=== PATIENT | male | born 1995 | race Caucasian/White ===

== ENCOUNTER 2018-12-08 00:37 | Emergency (ER) | payer OTHER ==
--- NOTE | 2018-12-08 01:15 | ERPHSYRPT ---
- History of Present Illness Source: patient, family Exam Limitations: no limitations Patient Subjective Stated Complaint: pt states he had a biopsy done on 11/24, had the sutures taken out on thursday. states the incision opened up tonight Triage Nursing Assessment: pt alert and oriented, asnwers questions approp. pt ambulatoryw ith steady gait noted. respirations nonlabored with lungs cta. incision noted to lt top head- no bleeding noted at this time. Physician History: Pt is a 23 y/o male with a recent h/o biopsy of scalp. Pt had his stitches removed, and today noticed some clear oozing from the incision. He presented to the ER to make sure it is not infected. Timing/Duration: today Quality: other (oozing from incision) Severity: mild Location: scalp Possible Causes: no cause identified Allergies/Adverse Reactions: No Known Drug Allergies Allergy (Verified 12/08/18 00:56) Home Medications: No Reportable Medications [No Reported Medications] 12/08/18 [History] Hx Tetanus, Diphtheria Vaccination/Date Given: No Hx Influenza Vaccination/Date Given: No Hx Pneumococcal Vaccination/Date Given: No Immunizations Up to Date: No - Review of Systems Skin: Other (oozing from skin incision from previous biopsy) - Past Medical History Pertinent Past Medical History: Yes Other Medical History: hodgkins lymphoma 2018, chemo - Past Surgical History Past Surgical History: Yes Gastrointestinal: Appendectomy Other Surgical History: port placement, pericardial window - Social History Smoking Status: Former smoker Exposure to second hand smoke: Yes Drug Use: none Patient Lives Alone: No - Nursing Vital Signs Nursing Vital Signs: Initial Vital Signs Temperature 98.0 F 12/08/18 00:46 Pulse Rate 81 12/08/18 00:46 Respiratory Rate 16 12/08/18 00:46 Blood Pressure 117/72 12/08/18 00:46 O2 Sat by Pulse Oximetry 96 12/08/18 00:46 Pain Scale Pain Intensity 0 - Physical Exam General Appearance: no apparent distress, alert Skin Exam: other (Incision is healing. scar is closed. No oozing is seen now.) SpO2: 96 - Course Nursing assessment & vital signs reviewed: Yes - Progress Progress: unchanged Progress Note: 12/08/18 01:11 Pt's incision was examined. It is closed, and healing. Pt was advised to avoid scratching at it. Soap and water can be used for cleaning. Pt should avoid hats, that can cause bacteria to get to the area. Pt should f/u with physician that performed the biopsy as a f/u. Counseled pt/family regarding: need for follow-up - Departure Time of Disposition: 01:13 Departure Disposition: Home Clinical Impression: Scalp bruising Condition: Stable Critical Care Time: No Referrals: JEZ MORENO [Primary Care Provider] - Additional Instructions: F/U with the physician that performed the biopsy for evaluation
[2018-12-08 01:39] VITALS: BP 119/67; PULSE 84; O2SAT 98
== END 2018-12-08 01:39 | disposition home or self-care (01) ==
LOC: ED 00:37
DX: L76.32 Postprocedural hematoma of skin and subcutaneous tissue following other procedure (principal)
CPT/HCPCS: 99283

== ENCOUNTER 2021-12-15 23:49 | Observation (INO) | payer OTHER ==
[2021-12-16] MEDS ORDERED: GlucaGen 1 MG IM ONE (00:07)
--- NOTE | 2021-12-16 00:12 | ERPHSYRPT ---
- History of Present Illness Time Seen by Provider: 12/16/21 00:00 Source: patient Exam Limitations: no limitations Patient Subjective Stated Complaint: eating porkchop tonight and didnt get a piece chewed up well and its stuck between lower neck and upper chest area. Triage Nursing Assessment: pt was eating a boneless porkchop for dinner tonight around 2129, apparently didn't get a piece chewed up well and it is stuck between lower neck and upper chest area. Pt has tried to cough really hard, drink a can of coke and water, and a Tablespoon of butter to get it down but is unable to. Pt can feel it. Lungs clear, heart tones reg, abd soft with active bs x4 quad, nontender. Pt states, "I can't even swallow water". Physician History: This is a 26-year-old white male who presents with a food bolus stuck in his esophagus. Patient was eating pork chop approximately 9:30 PM. He is unable to swallow since that time. He is breathing well. He does not have significant pain in the area. He has a history of lymphoma and there was perihilar mass removed and a pericardial window placed in the distant past. He has had no tracheal or esophageal surgeries. He had chemotherapy for this lymphoma but no radiation treatment. Timing/Duration: today Severity: moderate Associated Symptoms: denies symptoms Allergies/Adverse Reactions: No Known Drug Allergies Allergy (Verified 12/16/21 00:03) Home Medications: No Reportable Medications [No Reported Medications] 12/08/18 [History] Hx Tetanus, Diphtheria Vaccination/Date Given: Yes Hx Influenza Vaccination/Date Given: No Hx Pneumococcal Vaccination/Date Given: No Immunizations Up to Date: Yes Travel Risk - International Travel Have you traveled outside of the country in past 3 weeks: No - Coronavirus Screening Are you exhibiting any of the following symptoms?: No Close contact with a COVID-19 positive Pt in past 14-21 Days: No - Vaccine Status Have you recieved a Covid-19 vaccination: No - Review of Systems Constitutional: No Symptoms Eyes: No Symptoms Respiratory: No Symptoms Cardiac: No Symptoms Abdominal/Gastrointestinal: No Symptoms Genitourinary Symptoms: No Symptoms Musculoskeletal: No Symptoms Skin: No Symptoms Neurological: No Symptoms Psychological: No Symptoms Endocrine: No Symptoms Hematologic/Lymphatic: No Symptoms Immunological/Allergic: No Symptoms All Other Systems: Reviewed and Negative - Past Medical History Pertinent Past Medical History: Yes Other Medical History: hodgkins lymphoma 2018, chemo - Past Surgical History Past Surgical History: Yes Gastrointestinal: Appendectomy Other Surgical History: port placement, pericardial window - Social History Smoking Status: Never smoker Exposure to second hand smoke: No Drug Use: none Patient Lives Alone: No - Nursing Vital Signs Nursing Vital Signs: Initial Vital Signs Temperature 97.6 F 12/15/21 23:49 Pulse Rate 91 H 12/15/21 23:49 Respiratory Rate 18 12/15/21 23:49 Blood Pressure 141/83 12/15/21 23:49 O2 Sat by Pulse Oximetry 100 12/15/21 23:49 Pain Scale Pain Intensity 3 - Physical Exam General Appearance: mild distress, alert, anxiety Eye Exam: PERRL/EOMI, eyes nml inspection Ears, Nose, Throat Exam: normal ENT inspection, moist mucous membranes Neck Exam: normal inspection, non-tender, supple, full range of motion Respiratory Exam: normal breath sounds, lungs clear, airway intact, No chest tenderness, No respiratory distress Cardiovascular Exam: regular rate/rhythm, normal heart sounds, normal peripheral pulses Gastrointestinal/Abdomen Exam: soft, normal bowel sounds, No tenderness Rectal Exam: not done Back Exam: normal inspection, normal range of motion, No CVA tenderness, No vertebral tenderness Extremity Exam: normal inspection, normal range of motion, pelvis stable Neurologic Exam: alert, oriented x 3, cooperative, heating 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 II-XII nml as tested, normal mood/affect, nml cerebellar function, nml station & gait, sensation nml Skin Exam: normal color, warm, dry Lymphatic Exam: No adenopathy SpO2 Interpretation: normal SpO2: 100 O2 Delivery: Room Air - Course Nursing assessment & vital signs reviewed: Yes Ordered Tests: Active Orders 24 hr Category Date Time Status BMP Stat Lab 12/16/21 01:49 Completed CBC W DIFF Stat Lab 12/16/21 01:49 Completed Transfer Order Routine Transfer 12/16/21 Ordered Medication Summary Discontinued Medications Generic Name Dose Route Start Last Admin Trade Name Freq PRN Reason Stop Dose Admin Glucagon 1 mg 12/16/21 00:07 12/16/21 00:20 Glucagon 1 Mg/Vial Vial IM 12/16/21 00:08 Not Given STAT ONE Glucagon Confirm 12/16/21 00:14 Glucagon 1 Mg/Vial Vial Administered 12/16/21 00:15 Dose 1 mg .ROUTE .STK-MED ONE Glucagon 0.5 mg 12/16/21 00:18 12/16/21 00:19 Glucagon 1 Mg/Vial Vial IV 12/16/21 00:19 0.5 mg STAT ONE Administration Lab/Rad Data: Laboratory Result Diagrams 12/16/21 01:49 12/16/21 01:49 Laboratory Results 12/16/21 12/16/21 Range/Units 01:49 01:49 WBC 12.1 H (4.0-10.5) K/mm3 RBC 5.75 H (4.1-5.6) M/mm3 Hgb 16.7 (12.5-18.0) gm/dl Hct 48.1 (42-50) % MCV 83.7 (78-100) fl MCH 29.0 (26-32) pg MCHC 34.7 (32-36) g/dl RDW 13.4 (11.5-14.0) % Plt Count 216 (150-450) K/mm3 MPV 10.6 (7.5-11.0) fl Gran % 64.9 (36.0-66.0) % Eos # (Auto) 0.43 (0-0.5) Absolute Lymphs (auto) 2.80 (1.0-4.6) Absolute Monos (auto) 0.93 (0.0-1.3) Lymphocytes % 23.2 L (24.0-44.0) % Monocytes % 7.7 (0.0-12.0) % Eosinophils % 3.6 (0.00-5.0) % Basophils % 0.6 (0.0-0.4) % Absolute Granulocytes 7.86 H (1.4-6.9) Basophils # 0.07 (0-0.4) Sodium 140 (137-145) mmol/L Potassium 3.7 (3.5-5.1) mmol/L Chloride 100 (98-107) mmol/L Carbon Dioxide 30 (22-30) mmol/L Anion Gap 12.7 (5-15) MEQ/L BUN 12 (9-20) mg/dL Creatinine 1.30 H (0.66-1.25) mg/dL Estimated GFR > 60.0 ML/MIN Glucose 76 (74-106) mg/dL Calcium 9.1 (8.4-10.2) mg/dL - Progress Progress: unchanged Progress Note: 12/16/21 01:40 Medical decision making: I spoke with general surgeon Mahad Chin on the phone. This patient will require an EGD. Dr. Mahad Chin stated to have the patient stay in the hospital for Dr. Cain Chin to perform an EGD at 7:30 in the morning. We are calling the housecalls nurse to get that arranged. We will place the patient on some intravenous fluids. I feel the patient can stay in the emergency department until the time of his surgery. We will do a preoperative Covid test. 12/16/21 01:42 12/16/21 02:08 There is a change in plans. The patient will be placed in observation until [facility] is able to perform an EGD. I spoke with Dr. Pool who is a hospitalist today. The patient be admitted to Dr. Pool and undergo the EGD sometime late morning today. Discussed with : Melchor Contreras Counseled pt/family regarding: diagnosis - Departure Departure Disposition: Observation Clinical Impression: Impacted esophageal foreign body Condition: Stable Critical Care Time: No Referrals: JEZ MORENO [Primary Care Provider] - Follow up/PCP as directed
[2021-12-16] MEDS ORDERED: GlucaGen 1 MG ONE (00:14)
[2021-12-16] MEDS ORDERED: GlucaGen 1 MG IV ONE (00:18)
[2021-12-16 01:53] LABS: Absolute Neutrophil Ct (ANC) 7.86 (1.4-6.9); Basophil (Absolute #) 0.07 (0-0.4); Eosinophil % 3.6 % (0.00-5.0); Eosinophil (Absolute #) 0.43 (0-0.5); Hematocrit 48.1 % (42-50); Hemoglobin 16.7 gm/dl (12.5-18.0); Lymphocytes % 23.2 % (24.0-44.0); Mean Cell Volume 83.7 fl (78-100); Mean Corpuscular Hgb Concent. 34.7 g/dl (32-36); Mean Platelet Volume 10.6 fl (7.5-11.0); Monocyte (Absolute #) 0.93 (0.0-1.3); Monocytes % 7.7 % (0.0-12.0); Neutrophil % 64.9 % (36.0-66.0); Platelet Count 216 K/mm3 (150-450); Red Blood Count 5.75 M/mm3 (4.1-5.6); Red Cell Distribution Width 13.4 % (11.5-14.0); White Blood Count 12.1 K/mm3 (4.0-10.5)
[2021-12-16 02:05] LABS: ANION GAP 12.7 MEQ/L (5-15); BLOOD UREA NITROGEN 12 mg/dL (9-20); CHLORIDE 100 mmol/L (98-107); Calcium 9.1 mg/dL (8.4-10.2); Carbon Dioxide 30 mmol/L (22-30); EST GLOMERULAR FILTRATION RATE > 60.0 ML/MIN; Glucose 76 mg/dL (74-106); Potassium 3.7 mmol/L (3.5-5.1); SODIUM 140 mmol/L (137-145)
[2021-12-16 02:34] LABS: INFLUENZA A NEGATIVE (NEGATIVE); INFLUENZA B NEGATIVE (NEGATIVE); RESPIRATORY SYNCTIAL VIRUS NEGATIVE (Negative); SARS-CoV-2 Xpert Express NEGATIVE (NEGATIVE)
[2021-12-16] MEDS ORDERED: FEVERALL 650 MG PR PRN (03:12)
[2021-12-16] MEDS ORDERED: Zofran 4 MG/2 ML VIAL IV PRN (03:12)
[2021-12-16] MEDS ORDERED: Sodium Chloride 0.9% 1000 ML 1,000 ML IV SCH (03:12)
[2021-12-16 07:50] VITALS: O2SAT 97
[2021-12-16 11:53] VITALS: BP 120/60; PULSE 68
[2021-12-16] MEDS ORDERED: Versed 2 MG/2 ML Injection ONE (12:25)
[2021-12-16] MEDS ORDERED: Lactated Ringers 1,000 ML IV ONE (12:55)
[2021-12-16] MEDS ORDERED: DIPRIVAN 200 MG/20 ML IV ONE ×2 (13:07→13:10)
[2021-12-16] MEDS ORDERED: Ketamine HCl 50 MG/ML ONE (13:08)
--- NOTE | 2021-12-16 15:21 | CONS ---
CONSULT DATE: 12/16/2021 This patient was seen for Dr. Cain Chin who was consulted apparently during the night. He asked that I see the patient today when I was here doing outpatient procedures. HISTORY: He was apparently was eating a pork chop and felt like it did not get all the way down and stuck in the upper to lower chest area and esophagus. It feels like it is still present there. He denies any severe abdominal pain. PAST MEDICAL/SURGICAL HISTORY: Non-Hodgkin's lymphoma. He had pericardial window for some fluid around his heart. He had an appendectomy. He denied any prior endoscopy. He denied any prior swallowing problem. HOME MEDICATIONS: None on a regular basis. ALLERGIES: AMEND (HE STATES SOME SORT OF STEROID). FAMILY HISTORY: Negative in regards to this specific problem. SOCIAL HISTORY: He denied smoking. REVIEW OF SYSTEMS: Fourteen systems reviewed pertinent for as noted above, pertinent for the dysphagia. Question of retained food bolus. No shortness of breath. PHYSICAL EXAMINATION: GENERAL: No acute distress. HEENT: Sclera nonicteric. NECK: No JVD. CHEST: Equal excursion, nonlabored breathing. CVS: Regular rhythm and pulse. ABDOMEN: Soft, nondistended. EXTREMITIES: No edema. NEURO: Alert, moving extremities grossly symmetrically. PSYCH: Appropriate mood and affect. IMPRESSION: Dysphagia, question of retained food bolus. I feel the patient is a candidate for upper endoscopy, possible dislodgement of food bolus, possible removal of food bolus, possible biopsy. General risk explained. He was explained that whether he had retained food bolus or if he had already done significant damage to his esophagus, he could have perforation. He could have ischemic changes that could result in delayed perforation in a day or two or three from now. General risk of bleeding or infection, risk of aspiration or pneumonia, risk of cardiopulmonary event, possible need for biopsy depending on operative findings as well as possibility of anesthesia or sedation. General risk of aches and pains, possibility if we get this food bolus dislodged or removed, he may need follow up endoscopy if he has some persistent dysphagia down the road or may need some other upper GI or other work up. He understands all the above and the real risk of perforation and/or the fact that what he had retained in there could have some ischemic changes resulting in delayed perforation. He understands all the above and will proceed EGD, possible biopsy, possible dislodgement or removal of question of retained food bolus pending operative findings. Again, this patient was seen for Dr. Cain Chin who was consulted during the night and he asked that I see the patient while I was doing cases here.
--- NOTE | 2021-12-16 17:53 | PCM.SSS ---
History of Present Illness - Chief Complaint Chief Complaint: Impacted esophageal foreign body History of Present Illness: is a 26 year old male with a Hx Hodgkins Lymphoma in remission dg 2018. treated with Chemo and followed by Dr Haque . 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 He states he has occasional times when food sticks but it will go down with drinking. Patient states he sees Dr BRITTANY Balderas as his primary care doctor.He has appt with Dr Haque this week,follows q 3-4 months. Patient was treated by General Surgery /EGD and food was removed . Patient is in his bed eating a peice of pizza and drinking a pop. - Review of Systems Constitutional: No Symptoms Ears, Nose, & Throat: Painful Swallowing (mild post EGD retrival of meat bolus) Respiratory: No Symptoms Cardiac: No Symptoms Abdominal/Gastrointestinal: No Symptoms Genitourinary Symptoms: No Symptoms Musculoskeletal: No Symptoms Skin: No Symptoms Medications & Allergies Home Medications: Home Medication List Sucralfate 1000 mg/10 ml [Carafate SUSPENSION 1000 MG/10 ML] 1 gm PO TID #200 ml 12/16/21 [Rx] Allergies/Adverse Reactions: Allergies Allergy/AdvReac Type Severity Reaction Status Date / Time No Known Drug Allergies Allergy Verified 12/16/21 00:03 - Past Medical History Past Medical History: Yes Neurological History: No Pertinent History ENT History: No Pertinent History Cardiac History: No Pertinent History Respiratory History: No Pertinent History Endocrine Medical History: No Pertinent History Musculoskelatal History: No Pertinent History GI Medical History: No Pertinent History History: No Pertinent History Pyscho-Social History: No Pertinent History Male Reproductive Disorders: No Pertinent History Comment: hodgkins lymphoma 2018, chemo - Past Surgical History Past Surgical History: Yes Neuro Surgical History: No Pertinent History Cardiac History: No Pertinent History, Other (pericardial window/hodgkins) Respiratory Surgery: No Pertinent History GI Surgical History: Appendectomy Genitourinary Surgical Hx: No Pertinent History Musculskeletal Surgical Hx: No Pertinent History Male Surgical History: No Pertinent History Other Surgical History: port placement, pericardial window - Social History Smoking Status: Former smoker Exposure to second hand smoke: No Alcohol: None Drug Use: none - Physical Exam Vital Signs: Vital Signs - 24 hr Temp Pulse Resp BP Pulse Ox 12/16/21 11:51 97.5 F 68 18 120/60 97 12/16/21 07:49 97.2 F 70 18 116/62 97 12/16/21 03:52 97.3 F 72 16 126/71 96 12/16/21 03:23 97.3 F 72 16 126/71 96 12/16/21 03:00 68 16 116/73 96 12/16/21 02:12 69 16 132/89 96 12/16/21 02:11 100 12/16/21 01:00 91 H 18 105/94 99 12/15/21 23:49 97.6 F 91 H 18 141/83 100 General Appearance: no apparent distress Neurologic Exam: alert, oriented x 3, cooperative, normal mood/affect Eye Exam: eyes nml inspection Ears, Nose, Throat Exam: normal ENT inspection Neck Exam: normal inspection Respiratory Exam: normal breath sounds Cardiovascular Exam: regular rate/rhythm Gastrointestinal/Abdomen Exam: soft (nontender) Results - Labs Lab/Micro Results: Lab Results-Last 24 Hours 12/16/21 12/16/21 12/16/21 Range/Units 01:49 01:49 01:51 WBC 12.1 H (4.0-10.5) K/mm3 RBC 5.75 H (4.1-5.6) M/mm3 Hgb 16.7 (12.5-18.0) gm/dl Hct 48.1 (42-50) % MCV 83.7 (78-100) fl MCH 29.0 (26-32) pg MCHC 34.7 (32-36) g/dl RDW 13.4 (11.5-14.0) % Plt Count 216 (150-450) K/mm3 MPV 10.6 (7.5-11.0) fl Gran % 64.9 (36.0-66.0) % Eos # (Auto) 0.43 (0-0.5) Absolute Lymphs (auto) 2.80 (1.0-4.6) Absolute Monos (auto) 0.93 (0.0-1.3) Lymphocytes % 23.2 L (24.0-44.0) % Monocytes % 7.7 (0.0-12.0) % Eosinophils % 3.6 (0.00-5.0) % Basophils % 0.6 (0.0-0.4) % Absolute Granulocytes 7.86 H (1.4-6.9) Basophils # 0.07 (0-0.4) Sodium 140 (137-145) mmol/L Potassium 3.7 (3.5-5.1) mmol/L Chloride 100 (98-107) mmol/L Carbon Dioxide 30 (22-30) mmol/L Anion Gap 12.7 (5-15) MEQ/L BUN 12 (9-20) mg/dL Creatinine 1.30 H (0.66-1.25) mg/dL Estimated GFR > 60.0 ML/MIN Glucose 76 (74-106) mg/dL Calcium 9.1 (8.4-10.2) mg/dL Influenza Type A Ag NEGATIVE (NEGATIVE) Influenza Type B Ag NEGATIVE (NEGATIVE) RSV (PCR) NEGATIVE (Negative) SARS-CoV-2 (PCR) NEGATIVE (NEGATIVE) Assessment/Plan (1) Impacted esophageal foreign body Current Visit: Yes Status: Resolved Assessment & Plan: post EGD doing well Code(s): T18.108A - UNSP FOREIGN BODY IN ESOPHAGUS CAUSING OTH INJURY, INIT (2) Hx of Hodgkins lymphoma Current Visit: Yes Status: Resolved Assessment & Plan: followed by Dr Hutchinson,has appt this week Code(s): Z85.71 - PERSONAL HISTORY OF HODGKIN LYMPHOMA Hospital Summary - Hospital Course Hospital Course: see HPI. Will follow up with PCP Clint Balderas and oncology Dr Haque. - Vitals & Intake/Output Vital Signs: Vital Signs Temperature 97.5 F 12/16/21 11:51 Pulse Rate 68 12/16/21 11:51 Respiratory Rate 18 12/16/21 11:51 Blood Pressure 120/60 12/16/21 11:51 O2 Sat by Pulse Oximetry 97 12/16/21 11:51 Intake & Output: Intake & Output 12/14/21 12/15/21 12/16/21 12/17/21 11:59 11:59 11:59 11:59 Weight 106.3 kg - Lab Result Diagrams: 12/16/21 01:49 12/16/21 01:49 Lab Results-Last 24 Hrs: Lab Results-Last 24 Hours 12/16/21 12/16/21 12/16/21 Range/Units 01:49 01:49 01:51 WBC 12.1 H (4.0-10.5) K/mm3 RBC 5.75 H (4.1-5.6) M/mm3 Hgb 16.7 (12.5-18.0) gm/dl Hct 48.1 (42-50) % MCV 83.7 (78-100) fl MCH 29.0 (26-32) pg MCHC 34.7 (32-36) g/dl RDW 13.4 (11.5-14.0) % Plt Count 216 (150-450) K/mm3 MPV 10.6 (7.5-11.0) fl Gran % 64.9 (36.0-66.0) % Eos # (Auto) 0.43 (0-0.5) Absolute Lymphs (auto) 2.80 (1.0-4.6) Absolute Monos (auto) 0.93 (0.0-1.3) Lymphocytes % 23.2 L (24.0-44.0) % Monocytes % 7.7 (0.0-12.0) % Eosinophils % 3.6 (0.00-5.0) % Basophils % 0.6 (0.0-0.4) % Absolute Granulocytes 7.86 H (1.4-6.9) Basophils # 0.07 (0-0.4) Sodium 140 (137-145) mmol/L Potassium 3.7 (3.5-5.1) mmol/L Chloride 100 (98-107) mmol/L Carbon Dioxide 30 (22-30) mmol/L Anion Gap 12.7 (5-15) MEQ/L BUN 12 (9-20) mg/dL Creatinine 1.30 H (0.66-1.25) mg/dL Estimated GFR > 60.0 ML/MIN Glucose 76 (74-106) mg/dL Calcium 9.1 (8.4-10.2) mg/dL Influenza Type A Ag NEGATIVE (NEGATIVE) Influenza Type B Ag NEGATIVE (NEGATIVE) RSV (PCR) NEGATIVE (Negative) SARS-CoV-2 (PCR) NEGATIVE (NEGATIVE) - Discharge Disposition: Home, Self-Care Condition: Stable Prescriptions: New Sucralfate 1000 mg/10 ml [Carafate SUSPENSION 1000 MG/10 ML] 1 gm PO TID #200 ml Instructions: Food Obstruction Additional Instructions: NO NSAIDS OR ASPIRIN FOR 7 DAYS Follow up with: OLENA HAQUE [COURTESY STAFF] - (Patient will call to follow up) DANIELE BALDERAS [ACTIVE STAFF] - (will need to follow up )
--- NOTE | 2021-12-17 08:17 | OP ---
SURGERY DATE/TIME: 12/16/2021 1314 PREOPERATIVE DIAGNOSIS: Dysphagia, question of retained food bolus. POSTOPERATIVE DIAGNOSES: 1) Mild gastritis. 2) Mild distal esophagitis. 3) Food bolus in the stomach. PROCEDURES: 1) EGD with cold biopsy of the antrum for Helicobacter pylori. 2) Cold biopsy of distal esophagus to evaluate for esophagitis. 3) Cold biopsy of mid esophagus to evaluate for eosinophilic esophagitis. SURGEON: Dr. Srikanth Medina. ANESTHESIA: MAC. ESTIMATED BLOOD LOSS: Minimal. INDICATIONS: Dr. Cain Chin had been called during the night about retained food bolus. He asked that I see the patient and proceed with endoscopy for dysphagia, question of persistent retained food bolus. Risks and benefits explained in detail and not limited to and consent obtained. DESCRIPTION OF PROCEDURE AND FINDINGS: The patient is taken to the endoscopy room. MAC anesthesia introduced. After official time out and no disagreement with planned procedure, a bite block positioned. Video gastroscope easily passed down the esophagus through the gastroesophageal junction. It should be noted that there is some inflammation distal esophagus. There is a food bolus that had dropped down into the stomach. Whether from relaxation of the MAC anesthesia or not is unclear. There was no obstruction, no stricture to warrant any dilatation at this point. The scope is passed down into the duodenum. The third, second and first portion of the duodenum grossly unremarkable. Back in the stomach he had some mild gastritis. Cold biopsy taken to evaluate for Helicobacter pylori. Again, the large piece of meat was in the proximal stomach sitting there. On retroflex there was no evidence of any large hiatal hernia. The scope pulled back. Gastroesophageal junction about 39 cm. There was a little bit of inflammation in distal portion of the esophagus without any deep erosions. Some cold biopsies taken to evaluate for esophagitis. Good hemostasis noted. Again, there is no obstruction currently. The scope is pulled back up. There is a little bit of wrinkling in the esophagus a little bit further up. It was elected to go ahead and evaluate for eosinophilic esophagitis. Otherwise no signs of any large polyps, masses or any obstructing lesions. Good hemostasis noted. Scope is withdrawn. There was no family here to discuss the findings with. I will see him back in the office in a couple of weeks.
== END 2021-12-16 18:17 | disposition home or self-care (01) ==
LOC: ED 23:49 → MED SURG 12-16 03:09
PROVIDERS: ADMIT Family Medicine; ATTEND Family Medicine
DX: T18.108A Unspecified foreign body in esophagus causing other injury, initial encounter (principal); K29.70 Gastritis, unspecified, without bleeding; K20.90 Esophagitis, unspecified without bleeding; Z85.71 Personal history of Hodgkin lymphoma; Z20.828 Contact with and (suspected) exposure to other viral communicable diseases
CPT/HCPCS: 0241U; 36415; 43239; 80048; 85025; 96374; 99285; G0378; J1610; J2250; J2704

== ENCOUNTER 2022-08-11 21:33 | Observation (INO) | payer OTHER ==
[2022-08-11] MEDS ORDERED: GlucaGen 1 MG IV ONE (21:55)
[2022-08-11] MEDS ORDERED: GlucaGen 1 MG ONE (21:56)
[2022-08-11] MEDS ORDERED: Zofran 4 MG/2 ML VIAL IV PRN (22:42)
[2022-08-11] MEDS ORDERED: Hydromorphone 1 mg/ml Injection IV PRN (22:46)
--- NOTE | 2022-08-11 22:52 | ERPHSYRPT ---
- History of Present Illness Historian: patient Exam Limitations: no limitations Patient Subjective Stated Complaint: pt states he was eating beef jerky and states it is stuck in his throat. Triage Nursing Assessment: pt is alert and oriented, pt has no pain. states that he cannot swallow his saliva. Physician History: Beef jerky caught in the esophagus. Pt states that this is the 3rd episode of food bolus stuck in the esophagus this year. First episode was resolved w EGD, and he was able to clear the second time at home. Pt is unable to swallow solids/liquids. He denies reflux symptoms but states that problem might be related to Hodgkins Dz which he is in remission. Timing/Duration: other (17:30 today) Activities at Onset: other (Eating beef jerky) Quality: fullness Abdominal Pain Onset Location: other (Throat) Pain Radiation: no radiation Severity of Pain-Max: mild Severity of Pain-Current: mild Modifying Factors: Improves With: nothing, eating Associated Symptoms: denies symptoms Previous symptoms: same symptoms as today Allergies/Adverse Reactions: fosaprepitant [From Emend (fosaprepitant)] Allergy (Verified 08/11/22 21:44) Hx Tetanus, Diphtheria Vaccination/Date Given: Yes Hx Influenza Vaccination/Date Given: No Hx Pneumococcal Vaccination/Date Given: No Travel Risk - International Travel Have you traveled outside of the country in past 3 weeks: No - Coronavirus Screening Are you exhibiting any of the following symptoms?: No Close contact with a COVID-19 positive Pt in past 14-21 Days: No - Vaccine Status Have you recieved a Covid-19 vaccination: No - Review of Systems Constitutional: No Symptoms Eyes: No Symptoms Ears, Nose, & Throat: No Symptoms, Throat Pain, Painful Swallowing Respiratory: No Symptoms Cardiac: No Symptoms Abdominal/Gastrointestinal: No Symptoms Genitourinary Symptoms: No Symptoms Musculoskeletal: No Symptoms Skin: No Symptoms Neurological: No Symptoms Psychological: No Symptoms Endocrine: No Symptoms Hematologic/Lymphatic: No Symptoms Immunological/Allergic: No Symptoms - Past Medical History Pertinent Past Medical History: Yes Neurological History: No Pertinent History ENT History: No Pertinent History Cardiac History: No Pertinent History Respiratory History: No Pertinent History Endocrine Medical History: No Pertinent History Musculoskeletal History: No Pertinent History GI Medical History: No Pertinent History History: No Pertinent History Psycho-Social History: No Pertinent History Male Reproductive Disorders: No Pertinent History Other Medical History: hodgkins lymphoma 2018, chemo - Past Surgical History Past Surgical History: Yes Neuro Surgical History: No Pertinent History Cardiac: No Pertinent History, Other Respiratory: No Pertinent History Gastrointestinal: Appendectomy Genitourinary: No Pertinent History Musculoskeletal: No Pertinent History Male Surgical History: No Pertinent History Other Surgical History: port placement, pericardial window - Social History Smoking Status: Former smoker Exposure to second hand smoke: No Drug Use: none Patient Lives Alone: No - Nursing Vital Signs Nursing Vital Signs: Initial Vital Signs Temperature 98.1 F 08/11/22 21:37 Pulse Rate 78 08/11/22 21:37 Respiratory Rate 18 08/11/22 21:37 Blood Pressure 126/91 08/11/22 21:37 O2 Sat by Pulse Oximetry 98 08/11/22 21:37 Pain Scale Pain Intensity 0 WNL - Physical Exam General Appearance: no apparent distress Eye Exam: PERRL/EOMI, eyes nml inspection Ears, Nose, Throat Exam: normal ENT inspection, TMs normal, pharynx normal, moist mucous membranes Neck Exam: normal inspection, non-tender, supple, full range of motion, No meningismus, No mass, No Brudzinski, No Kernig's Respiratory Exam: normal breath sounds, lungs clear, airway intact, No respiratory distress Cardiovascular Exam: regular rate/rhythm, normal heart sounds, normal peripheral pulses, capillary refill <2 sec, No murmur Gastrointestinal/Abdomen Exam: soft, normal bowel sounds, No tenderness Back Exam: normal inspection, normal range of motion, No CVA tenderness, No vertebral tenderness Extremity Exam: normal inspection, normal range of motion, pelvis stable Neurologic Exam: alert, oriented x 3, cooperative, biostatistician II-XII nml as tested, normal mood/affect, nml cerebellar function, nml station & gait, sensation nml Skin Exam: normal color, warm, dry, No rash Lymphatic Exam: No adenopathy SpO2 Interpretation: normal SpO2: 98 O2 Delivery: Room Air - Course Nursing assessment & vital signs reviewed: Yes Ordered Tests: Active Orders 24 hr Category Date Time Status Bedrest with BRP/BSC ROUTINE Activity 08/11/22 22:44 Active Code Status Order ROUTINE Care 08/11/22 22:43 Active IV Care Q6H Care 08/11/22 22:43 Active IV Insertion STAT Care 08/11/22 21:[address] in Observation ROUTINE Care 08/11/22 22:43 Active Vital Signs Q4H Care 08/11/22 22:42 Active NPO Diet 08/11/22 22:44 Active CBC W DIFF AM.LAB Lab 08/12/22 04:00 Ordered CMP AM.LAB Lab 08/12/22 04:00 Ordered Transfer Order Routine Transfer 08/11/22 Ordered Medication Summary Generic Name Dose Route Start Last Admin Trade Name Moriah PRN Reason Stop Dose Admin Hydromorphone HCl 1 mg 08/11/22 22:46 08/11/22 22:55 Hydromorphone 1 Mg/1ml Inj 1 Mg/Ml Syringe IV 08/16/22 22:45 1 mg Q4H PRN PRN Administration PAIN Lactated Ringer's 1,000 mls @ 100 mls/hr 08/11/22 23:00 08/11/22 22:55 Lactated Ringers IV 09/10/22 22:59 100 mls/hr .Q10H GIN Administration Ondansetron HCl 4 mg 08/11/22 22:42 08/11/22 22:55 Ondansetron Hcl 4 Mg/2 Ml Vial IV 09/10/22 22:41 4 mg Q6H PRN PRN Administration NAUSEA/VOMITING Pantoprazole Sodium 40 mg 08/12/22 10:00 08/11/22 22:55 Pantoprazole 40 Mg Vial IV 09/11/22 09:59 40 mg Q24H10 GIN Administration Discontinued Medications Generic Name Dose Route Start Last Admin Trade Name Moriah PRN Reason Stop Dose Admin Glucagon 1 mg 08/11/22 21:55 08/11/22 21:58 Glucagon 1 Mg/Vial Vial IV 08/11/22 21:56 1 mg STAT ONE Administration Glucagon Confirm 08/11/22 21:56 Glucagon 1 Mg/Vial Vial Administered 08/11/22 21:57 Dose 1 mg .ROUTE .STK-MED ONE - Progress Progress Note: 08/11/22 22:52 1mg IV Glucagon wo resolution in food bolus Spoke to [place] Chin, wants to admit pt to himself and will do EGD at 6:00AM Counseled pt/family regarding: diagnosis, need for follow-up - Departure Departure Disposition: Observation Clinical Impression: Food impaction of esophagus Condition: Stable Critical Care Time: No Referrals: DANIELE MOORE [Primary Care Provider] - Follow up/PCP as directed
[2022-08-11] MEDS ORDERED: Lactated Ringers 1,000 ML IV SCH (23:00)
[2022-08-11 23:36] LABS: INFLUENZA A NEGATIVE (NEGATIVE); INFLUENZA B NEGATIVE (NEGATIVE); RESPIRATORY SYNCTIAL VIRUS NEGATIVE (Negative); SARS-CoV-2 Xpert Express NEGATIVE (NEGATIVE)
[2022-08-12 04:36] LABS: Absolute Neutrophil Ct (ANC) 6.17 x10^3/uL (1.4-6.9); Basophil (Absolute #) 0.07 x10^3/uL (0-0.4); Eosinophil % 4.3 % (0.00-5.0); Eosinophil (Absolute #) 0.45 x10^3/uL (0-0.5); Hematocrit 44.1 % (42-50); Hemoglobin 15.2 g/dL (12.5-18.0); Lymphocyte (Absolute #) 2.81 x10^3/uL (1.0-4.6); Lymphocytes % 26.7 % (24.0-44.0); Mean Cell Volume 84.8 fL (78-100); Mean Corpuscular Hemoglobin 29.2 pg (26-32); Mean Corpuscular Hgb Concent. 34.5 g/dL (32-36); Monocyte (Absolute #) 0.93 x10^3/uL (0.0-1.3); Monocytes % 8.8 % (0.0-12.0); Neutrophil % 58.6 % (36.0-66.0); Platelet Count 187 x10^3/uL (150-450); Red Cell Distribution Width 12.5 % (11.5-14.0); White Blood Count 10.5 x10^3/uL (4.0-10.5)
[2022-08-12 04:51] LABS: ALBUMIN 3.8 g/dL (3.5-5.0); ALKALINE PHOSPHATASE 71 U/L (38-126); ANION GAP 5.8 MEQ/L (5-15); BLOOD UREA NITROGEN 12 mg/dL (9-20); CHLORIDE 106 mmol/L (98-107); Calcium 8.2 mg/dL (8.4-10.2); Carbon Dioxide 30 mmol/L (22-30); Creatinine 1 1.06 mg/dL (0.66-1.25); EST GLOMERULAR FILTRATION RATE > 60.0 ML/MIN; Glucose 79 mg/dL (74-106); SGOT/AST 36 U/L (17-59); SGPT/ALT 48 U/L (0-50); SODIUM 137 mmol/L (137-145); Total Protein 6.9 g/dL (6.3-8.2)
[2022-08-12] MEDS ORDERED: Xylocaine-Mpf 2% 5 Ml Vial ONE (05:54)
[2022-08-12] MEDS ORDERED: Quelicin Fliptop 200 MG/10 ML ONE (05:55)
[2022-08-12] MEDS ORDERED: DIPRIVAN 200 MG/20 ML IV ONE (05:55)
[2022-08-12] MEDS ORDERED: SUBLIMAZE 100 MCG/2 ML ONE (06:00)
[2022-08-12] MEDS ORDERED: ROBINUL ONE (06:25)
[2022-08-12] MEDS ORDERED: Proair Hfa MDI IH ONE (06:46)
[2022-08-12 07:57] VITALS: BP 103/55; PULSE 97; O2SAT 93
--- NOTE | 2022-08-12 08:36 | PCM.SSS ---
History of Present Illness - Chief Complaint Chief Complaint: ESOPHAGEAL FOOD BOLUS History of Present Illness: is a 26 year old male pt of Dr. Julio Balderas with PMHx Hodgkins dz (in remission since 09/2017) who was admitted through ER with a food bolus (beef jerky) stuck in the esophagus. He was unable to swallow his own spit. He had EGD this morning with esophageal dilatation. He has had 2 other episodes of having food stuck in the throat; had one removed by EGD in the past. He sees his oncologist q 4 mo. 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) All Other Systems: Reviewed and Negative Medications & Allergies Home Medications: Home Medication List No Reportable Medications [No Reported Medications] 08/12/22 [History Confirmed 08/12/22] Allergies/Adverse Reactions: Allergies Allergy/AdvReac Type Severity Reaction Status Date / Time fosaprepitant Allergy Severe Anaphylactic Verified 08/12/22 00:33 [From Emend (fosaprepitant)] Reaction - Past Medical History Past Medical History: Yes Neurological History: No Pertinent History ENT History: No Pertinent History Cardiac History: No Pertinent History Respiratory History: No Pertinent History Endocrine Medical History: No Pertinent History Musculoskelatal History: No Pertinent History GI Medical History: No Pertinent History History: No Pertinent History Pyscho-Social History: No Pertinent History Male Reproductive Disorders: No Pertinent History Comment: hodgkins lymphoma 2018, chemo - Past Surgical History Past Surgical History: Yes Neuro Surgical History: No Pertinent History Cardiac History: No Pertinent History, Other Respiratory Surgery: No Pertinent History GI Surgical History: Appendectomy Genitourinary Surgical Hx: No Pertinent History Musculskeletal Surgical Hx: No Pertinent History Male Surgical History: No Pertinent History Other Surgical History: port placement AND REMOVAL, pericardial window, EGD - Social History Smoking Status: Never smoker Exposure to second hand smoke: No Alcohol: None Drug Use: none - Physical Exam Vital Signs: Vital Signs - 24 hr Temp Pulse Resp BP Pulse Ox 08/12/22 07:56 97.9 F 97 H 16 103/55 93 L 08/12/22 07:23 97.9 F 75 16 110/52 91 L 08/12/22 04:00 96.4 F 81 16 117/63 96 08/12/22 02:27 97.8 F 80 18 128/68 95 08/12/22 00:13 97.8 F 80 18 128/68 95 08/11/22 23:18 98 08/11/22 22:52 76 18 113/79 98 08/11/22 21:37 98.1 F 78 18 126/91 98 General Appearance: no apparent distress, alert Neurologic Exam: oriented x 3, cooperative Eye Exam: eyes nml inspection Ears, Nose, Throat Exam: moist mucous membranes Neck Exam: normal inspection, non-tender, No lymphadenopathy, No thyromegaly Respiratory Exam: normal breath sounds, lungs clear, No crackles/rales, No rhonchi, No wheezing Cardiovascular Exam: regular rate/rhythm, normal heart sounds, No murmur Gastrointestinal/Abdomen Exam: soft, normal bowel sounds, No tenderness, No distention, No mass, No guarding, No rebound Back Exam: normal inspection, No rash Extremity Exam: normal inspection, No swelling, No tenderness Skin Exam: normal color, warm, dry, No rash Results - Labs Lab/Micro Results: Lab Results-Last 24 Hours 08/11/22 08/12/22 08/12/22 Range/Units 22:55 04:33 04:33 WBC 10.5 (4.0-10.5) x10^3/uL RBC 5.20 (4.1-5.6) x10^6/uL Hgb 15.2 (12.5-18.0) g/dL Hct 44.1 (42-50) % MCV 84.8 (78-100) fL MCH 29.2 (26-32) pg MCHC 34.5 (32-36) g/dL RDW 12.5 (11.5-14.0) % Plt Count 187 (150-450) x10^3/uL MPV 10.0 (7.5-11.0) fL Gran % 58.6 (36.0-66.0) % Immature Gran % (Auto) 0.9 H (0.00-0.4) % Nucleat RBC Rel Count 0.0 (0.00-0.1) % Eos # (Auto) 0.45 (0-0.5) x10^3/uL Immature Gran # (Auto) 0.09 H (0.00-0.03) x10^3u/L Absolute Lymphs (auto) 2.81 (1.0-4.6) x10^3/uL Absolute Monos (auto) 0.93 (0.0-1.3) x10^3/uL Absolute Nucleated RBC 0.00 (0.00-0.01) x10^3u/L Lymphocytes % 26.7 (24.0-44.0) % Monocytes % 8.8 (0.0-12.0) % Eosinophils % 4.3 (0.00-5.0) % Basophils % 0.7 (0.0-0.4) % Absolute Granulocytes 6.17 (1.4-6.9) x10^3/uL Basophils # 0.07 (0-0.4) x10^3/uL Sodium 137 (137-145) mmol/L Potassium 4.0 (3.5-5.1) mmol/L Chloride 106 (98-107) mmol/L Carbon Dioxide 30 (22-30) mmol/L Anion Gap 5.8 (5-15) MEQ/L BUN 12 (9-20) mg/dL Creatinine 1.06 (0.66-1.25) mg/dL Estimated GFR > 60.0 ML/MIN Glucose 79 (74-106) mg/dL Calcium 8.2 L (8.4-10.2) mg/dL Total Bilirubin 1.30 (0.2-1.3) mg/dL AST 36 (17-59) U/L ALT 48 (0-50) U/L Alkaline Phosphatase 71 (38-126) U/L Serum Total Protein 6.9 (6.3-8.2) g/dL Albumin 3.8 (3.5-5.0) g/dL Influenza Type A Ag NEGATIVE (NEGATIVE) Influenza Type B Ag NEGATIVE (NEGATIVE) RSV (PCR) NEGATIVE (Negative) SARS-CoV-2 (PCR) NEGATIVE (NEGATIVE) Assessment/Plan (1) Food impaction of esophagus Current Visit: Yes Status: Acute Qualifiers: Encounter type: initial encounter Qualified Code(s): T18.128A - Food in esophagus causing other injury, initial encounter Assessment & Plan: This is the third time. Did have esophageal dilitation. Advised he should discuss possible GI f/u with DR. Balderas. See PCP in 1 week. Code(s): T18.128A - FOOD IN ESOPHAGUS CAUSING OTHER INJURY, INITIAL ENCOUNTER (2) Hx of Hodgkins lymphoma Current Visit: No Status: Resolved Code(s): Z85.71 - PERSONAL HISTORY OF [facility] Hospital Summary - Hospital Course Hospital Course: Pt is 26 yo male with hx Hodgkins dz admitted through ER with food bolus stuck in esophagus. Had EGD this morning, cleared the bolus and dilated the esophagus. Pt currently swallowing fine. Would like to go home when able. - Vitals & Intake/Output Vital Signs: Vital Signs Temperature 97.9 F 08/12/22 07:56 Pulse Rate 97 H 08/12/22 07:56 Respiratory Rate 16 08/12/22 07:56 Blood Pressure 103/55 08/12/22 07:56 O2 Sat by Pulse Oximetry 93 L 08/12/22 07:56 Intake & Output: Intake & Output 08/09/22 08/10/22 08/11/22 08/12/22 11:59 11:59 11:59 11:59 Intake Total 482 Balance 482 Weight 114 kg - Lab Result Diagrams: 08/12/22 04:33 08/12/22 04:33 Lab Results-Last 24 Hrs: Lab Results-Last 24 Hours 08/11/22 08/12/22 08/12/22 Range/Units 22:55 04:33 04:33 WBC 10.5 (4.0-10.5) x10^3/uL RBC 5.20 (4.1-5.6) x10^6/uL Hgb 15.2 (12.5-18.0) g/dL Hct 44.1 (42-50) % MCV 84.8 (78-100) fL MCH 29.2 (26-32) pg MCHC 34.5 (32-36) g/dL RDW 12.5 (11.5-14.0) % Plt Count 187 (150-450) x10^3/uL MPV 10.0 (7.5-11.0) fL Gran % 58.6 (36.0-66.0) % Immature Gran % (Auto) 0.9 H (0.00-0.4) % Nucleat RBC Rel Count 0.0 (0.00-0.1) % Eos # (Auto) 0.45 (0-0.5) x10^3/uL Immature Gran # (Auto) 0.09 H (0.00-0.03) x10^3u/L Absolute Lymphs (auto) 2.81 (1.0-4.6) x10^3/uL Absolute Monos (auto) 0.93 (0.0-1.3) x10^3/uL Absolute Nucleated RBC 0.00 (0.00-0.01) x10^3u/L Lymphocytes % 26.7 (24.0-44.0) % Monocytes % 8.8 (0.0-12.0) % Eosinophils % 4.3 (0.00-5.0) % Basophils % 0.7 (0.0-0.4) % Absolute Granulocytes 6.17 (1.4-6.9) x10^3/uL Basophils # 0.07 (0-0.4) x10^3/uL Sodium 137 (137-145) mmol/L Potassium 4.0 (3.5-5.1) mmol/L Chloride 106 (98-107) mmol/L Carbon Dioxide 30 (22-30) mmol/L Anion Gap 5.8 (5-15) MEQ/L BUN 12 (9-20) mg/dL Creatinine 1.06 (0.66-1.25) mg/dL Estimated GFR > 60.0 ML/MIN Glucose 79 (74-106) mg/dL Calcium 8.2 L (8.4-10.2) mg/dL Total Bilirubin 1.30 (0.2-1.3) mg/dL AST 36 (17-59) U/L ALT 48 (0-50) U/L Alkaline Phosphatase 71 (38-126) U/L Serum Total Protein 6.9 (6.3-8.2) g/dL Albumin 3.8 (3.5-5.0) g/dL Influenza Type A Ag NEGATIVE (NEGATIVE) Influenza Type B Ag NEGATIVE (NEGATIVE) RSV (PCR) NEGATIVE (Negative) SARS-CoV-2 (PCR) NEGATIVE (NEGATIVE) - Discharge Disposition: Home, Self-Care Condition: Good Prescriptions: No Action No Reportable Medications [No Reported Medications] Follow up with: ORVILLE CARRASCO MD [ACTIVE STAFF] - 2 weeks
--- NOTE | 2022-08-12 09:36 | HP ---
CHIEF COMPLAINT: Food is stuck. HISTORY OF PRESENT ILLNESS: The patient is a 26-year-old male with history of food bolus impaction six to eight months ago requiring EGD and has had that happen once since then that passed through spontaneously but then on the night of presentation at 5 p.m., the patient said that he had some beef jerky that had gotten stuck and not tolerating liquids since then. REVIEW OF SYSTEMS: Otherwise negative. PAST MEDICAL HISTORY: Hodgkin's lymphoma in remission. PAST SURGICAL HISTORY: Appendectomy. Port. Pericardial window. EGD with dilatation. FAMILY HISTORY: Negative. SOCIAL HISTORY: Nonsmoker. MEDICATIONS: None. ALLERGIES: EMEND (FOSAPREPITANT). PHYSICAL EXAMINATION: Vital signs normal. No acute distress. CHEST: Nonlabored respirations. HEART: Regular rate and rhythm. ABDOMEN: Soft, nontender to palpation. EXTREMITIES: No peripheral edema. NEURO: Jose Coma Scale (GCS) 15. PSYCH: Appropriate mood and affect. ASSESSMENT AND PLAN: A 26-year-old male with food bolus impaction. We will take him for EGD with disimpaction.
[2022-08-12] MEDS ORDERED: PROTONIX 40 MG IV IV SCH (10:00)
--- NOTE | 2022-08-12 10:32 | OP ---
SURGERY DATE/TIME: 08/12/2022 0610 PREOPERATIVE DIAGNOSIS: Esophageal food bolus impaction. POSTOPERATIVE DIAGNOSES: 1) Esophageal food bolus impaction. 2) Esophageal stricture. PROCEDURES: 1) Esophagogastroduodenoscopy with food bolus disimpaction. 2) Esophageal dilation. SURGEON: Cain Chin M.D. ANESTHESIA: General endotracheal. CONDITION: Patient condition stable. COMPLICATIONS: None. SPECIMENS: None. ESTIMATED BLOOD LOSS: Minimal. HISTORY: The patient is a 26-year-old male with history of Hodgkin's lymphoma that presents with food bolus impaction. He has had this two other times in the last six to seven months. He had an EGD around six months ago with no dilatation performed per the patient. He presents with less than 12 hours of getting a piece of beef jerky stuck in his throat and unable to tolerate liquid. He elected to proceed with the procedure. FINDINGS: Beef jerky in the upper throat cricopharyngeus. There is esophageal stricture at 16 to 20 cm and then 23 to 30 cm. There is also mild stricture at the gastroesophageal junction. Strictures are dilated up with 18 mm with a 15 to 18 balloon and then. DESCRIPTION OF PROCEDURE: The patient was brought to the OR. General endotracheal anesthesia induced. The patient was routinely prepared. Time out performed. The gastroscope inserted through the mouth and advanced. There is a food bolus at the cricopharyngeus. It was easily able to be pushed through the esophagus into the stomach. It was about a 2 inch piece of beef jerky. The scope advanced to the duodenum which is normal. The stomach is normal in appearance. The gastroesophageal junction there is maybe a slight stricture at the gastroesophageal junction. The scope withdrawn through this. There is a little bit of irritation at the level of the food bolus but has stricture that is benign intrinsic appearance otherwise normal. The 15 - 18 balloon is introduced and then the gastroesophageal junction stricture is dilated for one minute up to 18 mm. After re-evaluation, there is no mucosal disruption at that level. The 18 balloon is redilated throughout the entire esophagus. There is stricture at the level of 16 to 20 cm and then 23 to 30 cm. At those levels, there is longitudinal mucosal disruption after the dilation and seems satisfactory. The stomach suctioned out and the scope withdrawn. RECOMMENDATIONS: I recommend a soft diet for three days. He will likely need a repeat evaluation in one month. I will have him follow up in the office in two weeks.
--- NOTE | 2022-08-12 10:41 | DS ---
DISCHARGE DIAGNOSES: 1) FOOD BOLUS IMPACTION. 2) ESOPHAGEAL STRICTURE. PROCEDURE PERFORMED: EGD with removal of food bolus and esophageal dilation. HISTORY: The patient is a 26-year-old male with history of food bolus impaction with prior EGD disimpaction around six months ago and then had an episode that resolved spontaneously but then presents with food bolus impaction after beef jerky. HOSPITAL COURSE: The patient was admitted to observation and scheduled for first thing EGD disimpaction. He did well with that procedure. The stricture was dilated and then he is started on p.o. and discharged home in good condition tolerating p.o.
== END 2022-08-12 09:42 | disposition home or self-care (01) ==
LOC: ED 21:33 → MED SURG 08-12 00:02 → UNDOADMOB 08-12 00:02 → UNDODISOB 08-12 09:42
PROVIDERS: ADMIT Surgery; ATTEND Family Medicine
DX: T18.128A Food in esophagus causing other injury, initial encounter (principal); K22.2 Esophageal obstruction; E83.51 Hypocalcemia; Z85.71 Personal history of Hodgkin lymphoma; Z20.828 Contact with and (suspected) exposure to other viral communicable diseases
CPT/HCPCS: 0241U; 36000; 36415; 43249; 80053; 82330; 83970; 85025; 96374; 96375; 99284; G0378; 99140; C1726; J0330; J1170; J1610; J2405; J2704; J3010; A9270-GY